=== PATIENT | male | born 1995 | race Two or more races ===

== ENCOUNTER 2021-10-07 18:55 | Emergency (ER) | payer OTHER ==
[2021-10-07] MEDS ORDERED: Tetracaine HCl/PF 0.5% 4 ML Bottle EYELF ONE (19:35)
[2021-10-07] MEDS ORDERED: Ciprofloxacin 0.3% Ophth Soln 5 ML Bottle EYELF ONE (19:45)
== END 2021-10-07 20:00 | disposition home or self-care (01) ==
LOC: KA.ED 18:55
DX: T15.02XA Foreign body in cornea, left eye, initial encounter (principal); X58.XXXA Exposure to other specified factors, initial encounter
CPT/HCPCS: 65220; 99283; 99283-25